=== PATIENT | female | born 1990 | race Caucasian/White ===

== ENCOUNTER 2020-08-19 15:12 | Emergency (ER) | payer MEDICAID ==
[2020-08-19 15:56] LABS: BILIRUBIN,URINE NEGATIVE (NEGATIVE); GLUCOSE, URINE (UA) NEGATIVE (NEGATIVE); KETONES,URINE (UA) NEGATIVE (NEGATIVE); LEUKOCYTE ESTERASE, URINE NEGATIVE (NEGATIVE); NITRITE,URINE NEGATIVE (NEGATIVE); OCCULT BLOOD,URINE NEGATIVE (NEGATIVE); PROTEIN,URINE NEGATIVE (NEGATIVE); UROBILINOGEN,URINE 0.2 (NORMAL) E.U./dL (NORMAL)
[2020-08-19 15:57] LABS: CLARITY,URINE CLEAR (CLEAR); HCG UR QUAL NEGATIVE
[2020-08-19 16:05] LABS: BASOPHILS % (AUTO) 0.5 %; EOSINOPHILS # (AUTO) 0.5 10^3/uL (0.0-0.7); EOSINOPHILS % (AUTO) 9.1 %; HGB - HEMOGLOBIN 14.3 g/dL (12.0-16.0); LYMPHOCYTES # (AUTO) 1.9 10^3/uL (1.5-3.5); LYMPHOCYTES % (AUTO) 32.5 %; MEAN CORPUSCULAR HEMOGLOBIN 29.5 pg (27.0-31.0); MEAN CORPUSCULAR HGB CONC 34.1 g/dL (32.0-36.0); MEAN CORPUSCULAR VOLUME 86.6 fL (81.0-99.0); MEAN PLATELET VOLUME 9.1 fL (7.9-10.8); MONOCYTES # (AUTO) 0.4 10^3/uL (0.0-1.0); MONOCYTES % (AUTO) 6.4 %; NEUTROPHILS # (AUTO) 3.1 10^3/uL (1.5-6.6); NEUTROPHILS % (AUTO) 51.5 %; PLT - PLATELET COUNT 159 10^3/uL (130-450); RED BLOOD COUNT 4.84 10^6/uL (4.20-5.40); RED CELL DISTRIBUTION WIDTH 12.6 % (12.0-15.0); WHITE BLOOD COUNT 5.9 x10^3/uL (4.8-10.8)
--- NOTE | 2020-08-19 16:11 | ED Physician Documentation ---
PD HPI FEMALE - Stated complaint Stated Complaint: FEMALE - Chief complaint Chief Complaint: Abd Pain - History obtained from History obtained from: Patient - History of Present Illness Timing - onset: How many days ago (2) Timing - duration: Days (2) Timing - details: Gradual onset, Still present Associated symptoms: Abdominal pain, Pelvic pain, Vaginal discharge Contributing factors: Sexually active. No: , Exposed to STD Similar symptoms before: Has not had sx before Recently seen: Clinic (drug treatment clinic and started Suboxone and Zoloft about a month ago.) Review of Systems Constitutional: denies: Fever, Chills Throat: denies: Sore throat Respiratory: denies: Dyspnea, Cough GI: reports: Abdominal Pain. denies: Nausea, Vomiting, Diarrhea : reports: Discharge. denies: Dysuria, Frequency Skin: reports: Other (she is having some areas of itching on arms and legs, and some spotty rash today. Had not taken any meds prior to the onset of rash.) PD PAST MEDICAL HISTORY - Past Medical History Cardiovascular: None Respiratory: None Neuro: None Endocrine/Autoimmune: None - Present Medications Home Medications: Ambulatory Orders Medication Instructions Recorded Confirmed Buprenorphine HCl/Naloxone HCl 1 each PO BID 08/19/20 08/19/20 [Suboxone 8-2 mg Sl tab] Cetirizine [ZyrTEC] 10 mg PO BID #15 tablet 08/19/20 Fluconazole [Diflucan] 150 mg PO ONCE #1 tablet 08/19/20 Ibuprofen [Motrin] 600 mg PO TID PRN #25 tab 08/19/20 Sertraline HCl [Zoloft] 100 mg PO DAILY 08/19/20 08/19/20 dexAMETHasone [Decadron] 4 mg PO DAILY #5 tablet 08/19/20 - Allergies Allergies/Adverse Reactions: Allergies Allergy/AdvReac Type Severity Reaction Status Date / Time No Known Drug Allergies Allergy Verified 08/19/20 15:15 - Social History Does the pt smoke?: No Smoking Status: Never smoker PD ED PE NORMAL - Vitals Vital signs reviewed: Yes - General General: Alert and oriented X 3, No acute distress, Well developed/nourished - HEENT HEENT: Moist mucous membranes, Pharynx benign - Neck Neck: Supple, no meningeal sign, No adenopathy - Cardiac Cardiac: RRR, No murmur - Respiratory Respiratory: Clear bilaterally - Abdomen Abdomen: Soft, Non distended, Other (mild tender suprapubic area without guarding. ) - Female Female : Deferred, Other (she obtained self swabs for STD and Vaginitis. ) - Rectal Rectal: Deferred - Back Back: No CVA TTP - Derm Derm: Normal color, Warm and dry, Other (several spotty mac/pap rash spots trunk and arms (legs with leggings on). ANd a hive patch appearing area left upper arm. ) Results - Vitals Vitals: Vital Signs - 24 hr 08/19/20 08/19/20 15:16 17:23 Temperature 36.9 C 36.9 C Heart Rate 62 65 Respiratory 19 16 Rate Blood Pressure 120/79 112/82 H O2 Saturation 100 97 Oxygen O2 Source Room air - Labs Labs: Laboratory Tests 08/19/20 08/19/20 08/19/20 15:35 15:35 15:50 WBC 5.9 RBC 4.84 Hgb 14.3 Hct 41.9 MCV 86.6 MCH 29.5 MCHC 34.1 RDW 12.6 Plt Count 159 MPV 9.1 Neut # (Auto) 3.1 Lymph # (Auto) 1.9 [place] # (Auto) 0.4 Eos # (Auto) 0.5 Baso # (Auto) 0.0 Absolute Nucleated RBC 0.00 Nucleated RBC % 0.0 Sodium Potassium Chloride Carbon Dioxide Anion Gap BUN Creatinine Estimated GFR (MDRD) Glucose Calcium Total Bilirubin AST ALT Alkaline Phosphatase Total Protein Albumin Globulin Albumin/Globulin Ratio Lipase Urine Color YELLOW Urine Clarity CLEAR Urine pH 6.0 Ur Specific [place] >=1.030 H Urine Protein NEGATIVE Urine Glucose (UA) NEGATIVE Urine Ketones NEGATIVE Urine Occult Blood NEGATIVE Urine Nitrite NEGATIVE Urine Bilirubin NEGATIVE Urine Urobilinogen 0.2 (NORMAL) Ur Leukocyte Esterase NEGATIVE Ur Microscopic Review NOT INDICATED Urine Culture Comments NOT INDICATED Urine HCG, Qual NEGATIVE C. glabrata (PCR) NEGATIVE C. krusei (PCR) NEGATIVE Leti species DNA NEGATIVE T. vaginalis (PCR) NEGATIVE Bact Vaginosis (PCR) POSITIVE A 08/19/20 15:50 WBC RBC Hgb Hct MCV MCH MCHC RDW Plt Count MPV Neut # (Auto) Lymph # (Auto) [place] # (Auto) Eos # (Auto) Baso # (Auto) Absolute Nucleated RBC Nucleated RBC % Sodium 135 Potassium 3.5 Chloride 101 Carbon Dioxide 25 Anion Gap 9.0 BUN 16 Creatinine 0.6 Estimated GFR (MDRD) 119 Glucose 94 Calcium 9.4 Total Bilirubin 0.8 AST 48 H ALT 72 H Alkaline Phosphatase 55 Total Protein 8.3 H Albumin 4.5 Globulin 3.8 Albumin/Globulin Ratio 1.2 Lipase 26 Urine Color Urine Clarity Urine pH Ur Specific [place] Urine Protein Urine Glucose (UA) Urine Ketones Urine Occult Blood Urine Nitrite Urine Bilirubin Urine Urobilinogen Ur Leukocyte Esterase Ur Microscopic Review Urine Culture Comments Urine HCG, Qual C. glabrata (PCR) C. krusei (PCR) Leti species DNA T. vaginalis (PCR) Bact Vaginosis (PCR) PD MEDICAL DECISION MAKING - ED course Complexity details: considered differential (vaginal/pelvic symptoms could be yeast or BV. Self swabs obtained. SHe would like to await results to decide on antibiotics. Rash is unclear if related. Less likely med reaction since current meds have been for over a month. ), d/w patient Departure - Departure Disposition: 01 Home, Self Care Clinical Impression: Pelvic pain, Pruritic rash Vaginitis Qualifiers: Chronicity: acute Qualified Code(s): N76.0 - Acute vaginitis Condition: Stable Record reviewed to determine appropriate education?: Yes Prescriptions: dexAMETHasone [Decadron] 4 mg PO DAILY #5 tablet Fluconazole [Diflucan] 150 mg PO ONCE #1 tablet Ibuprofen [Motrin] 600 mg PO TID PRN #25 tab PRN Reason: Pain Cetirizine [ZyrTEC] 10 mg PO BID #15 tablet Comments: Regarding the rash, this may be an allergic reaction or may relate to the current vaginal symptoms. We can treated as possible allergy with Decadron steroid and cetirizine antihistamines over the next several days. The "cultures" from the vaginal swabs will result tomorrow and we can decide if there needs to be any antibiotics. We alyssa call you if these need to be added. Meanwhile we can presume possibly some vaginal yeast infection. This was treated with a dose of an antifungal here and you want to repeat that with another dose in 3 days. Treat the pelvic pain with ibuprofen 2-3 times a day and add Tylenol if needed. Discharge Date/Time: 08/19/20 17:28
[2020-08-19 16:15] LABS: ALBUMIN 4.5 g/dL (3.2-5.5); ALBUMIN/GLOBULIN RATIO 1.2 (1.0-2.2); BILIRUBIN,TOTAL 0.8 mg/dL (0.2-1.0); CALCIUM 9.4 mg/dL (8.5-10.3); CREATININE 0.6 mg/dL (0.4-1.0); TOTAL PROTEIN 8.3 g/dL (6.7-8.2)
[2020-08-19] MEDS ORDERED: FLUCONAZOLE 100 MG TABLET PO STA (16:40)
[2020-08-19] MEDS ORDERED: CHERRY SYRUP 10 ML UDC PO ONE (16:40)
[2020-08-19] MEDS ORDERED: IBUPROFEN 600 MG TABLET PO STA (16:40)
[2020-08-19] MEDS ORDERED: DEXAMETHASONE 10 MG/ML VIAL PO STA (16:40)
[2020-08-19] MEDS ORDERED: diphenhydrAMINE 25 MG CAPSULE PO STA (16:40)
[2020-08-19 17:23] VITALS: BP 112/82
[2020-08-19 17:51] LABS: CANDIDA GROUP DNA NEGATIVE (NEGATIVE); CANDIDA KRUSEI DNA NEGATIVE (NEGATIVE); TRICHOMONAS VAGINALIS DNA NEGATIVE (NEGATIVE)
[2020-08-19 21:42] LABS: TRICHOMONAS VAGINALIS DNA NEGATIVE (NEGATIVE)
== END 2020-08-19 17:28 | disposition home or self-care (01) ==
LOC: ED 15:12
DX: N76.0 Acute vaginitis (principal); L29.9 Pruritus, unspecified
CPT/HCPCS: 36415; 80053; 81003; 81025; 83690; 85025; 87481; 87491; 87591; 87661; 87801; 99283; A9270; 81001; 87086